=== PATIENT | male | born 1980 | race Caucasian/White ===

== ENCOUNTER 2017-01-11 14:30 | Emergency (ER) | payer OTHER ==
[2017-01-11 14:55] VITALS: TEMP 97.9; O2SAT 95
[2017-01-11] MEDS ORDERED: ASPIRIN 81 MG CHEWABLE TAB PO ONE (14:58)
--- NOTE | 2017-01-11 14:59 | CPEKG ---
Heart Rate: 75 RR Interval: 800 P-R Interval: 168 QRSD Interval: 92 QT Interval: 372 QTC Interval: 416 P [place]: 58 QRS [place]: 4 T Wave [place]: 38 EKG Severity - NORMAL ECG - EKG Impression: SINUS RHYTHM Electronically Signed By: Pk uRiz 12-Jan-2017 10:12:50
--- NOTE | 2017-01-11 15:49 | UCPHY ---
H & P Patient Type: New Chief Complaint Nursing Narrative: cp x 3 days or so . with sob. Time Seen by Provider: 01/11/17 15:47 HPI/ROS: CHIEF COMPLAINT: Left anterior lateral chest pain HISTORY OF PRESENT ILLNESS: Previously healthy 36-year-old male who has had no recent cough. Nonetheless he started developing pain to the lateral aspect of the anterior chest wall in the anterior axial line. He became concerned today when he has noted some shortness of breath while carrying the baby carrier. It was not straining in the is he was carrying on the right side. There is no associated diaphoresis. He had had no wheezing. No peripheral edema or calf pain. No prior history of DVT or PE. He cannot recall anything particular that he did strain on the left chest wall. Some 3 days ago he did go for a run which she felt well with normal stamina and did to some pushups, however, this activity was after the onset of discomfort. Discomfort is steady, worse with movement as well as twisting. It is not getting worse, only persistent and now with some shortness of breath without diaphoresis. It is mild in nature, achy sensation. Over the mid left chest at the anterior axillary line Cardiac risk factors: None DVT/PE risk factors: None Aortic dissection risk factors: None REVIEW OF SYSTEMS: Constitutional: No fever, no chills. Eyes: No discharge ENT: No sore throat. Cardiovascular: See above Respiratory: No cough, shortness of breath, or wheezing. Gastrointestinal: No nausea vomiting or diarrhea. No abdominal pain. Genitourinary: No hematuria or frequency. Musculoskeletal: No back pain. Skin: No rashes. Neurological: No headache. 10 point ROS otherwise negative Source: Patient Exam Limitations: No limitations - Personal History Current Tetanus Diphtheria and Acellular Pertussis (TDAP): Yes - Medical/Surgical History Hx Asthma: No Hx Chronic Respiratory Disease: No Hx Diabetes: No Hx Cardiac Disease: No Hx Renal Disease: No Hx Cirrhosis: No Hx Alcoholism: No Hx Splenectomy or Spleen Trauma: No Other PMH: Hernia inguinal bilaterally - Family History Significant Family History: No pertinent family hx - Social History Smoking Status: Never smoked Alcohol Use: None Drug Use: None - Physical Exam Exam: General Appearance: Alert, no distress. Afebrile. Normal phonation. No respiratory distress. Eyes: Pupils equal and round no pallor or injection. No icterus ENT, Mouth: Mucous membranes moist. Pharynx without erythema or exudate. TM Clear. Neck: No adenopathy. Supple. No JVD. Trachea in midline. Respiratory: There are no retractions, lungs are clear to auscultation. There is no rales or rubs heard over the spot in question in the anterior axillary line. The area itself is not tender to palpation directly however when he twists and bends and reaches in provocative manner as I had him do so in fact reproduce the pain. Cardiovascular: Regular rate and rhythm, without murmur. Abdomen: Soft and nontender, no masses, bowel sounds normal. Neurological: Ox3. No motor weakness. Sensation intact. Gait nl. Skin: Warm and dry, no rashes. Musculoskeletal: No joint swelling. Extremities: No edema. Homans sign negative. No cords. Psychiatric: Normal affect. Constitutional: Initial Vital Signs Temperature (C) 36.6 C 01/11/17 14:51 Heart Rate 90 01/11/17 14:51 Respiratory Rate 18 01/11/17 14:51 Blood Pressure 145/94 H 01/11/17 14:51 O2 Sat (%) 95 01/11/17 14:51 O2 Delivery Mode Room Air Allergies/Adverse Reactions: No Known Allergies Allergy (Unverified 01/11/17 14:55) Home Medications: Medication Instructions Recorded NK [No Known Home Meds] 01/11/17 Medical Decision Making - Diagnostics EKG Interpretation: EKG. Interpreted by me contemporaneously. Normal sinus rhythm. Rate of 75. Normal QTC of 4 1. No ischemic changes. Normal QRS. Normal QTC as well as ST T segments. Normal EKG. ED Course/Re-evaluation: His heart score is 0. He has reproducible chest pain in the site specifically with twisting and bending and reaching. Not direct touch. EKG is negative. Thereby no further testing is necessary. I would expect improvement over the course of the next 10 days to 2 weeks on ibuprofen and Tylenol therapy. Should his symptoms escalate, worsen, or additional findings or symptoms he should return. Differential Diagnosis: Differential diagnosis includes but is not limited to the following: ACS, myocardial infarction, pneumothorax, pleurisy, pulmonary embolus, aortic dissection, anxiety, muscle strain. - Data Points Medications Given: Discontinued Medications Aspirin (Aspirin) 324 mg PO EDNOW ONE Stop: 01/11/17 14:59 Last Admin: 01/11/17 15:02 Dose: 324 mg Departure - Departure Disposition: Home, Routine, Self-Care Clinical Impression: Musculoskeletal chest pain Condition: Good Instructions: Chest Pain (ED) Additional Instructions: Tylenol and Advil works well together the combination, 1300 Tylenol extended- release and 800 mg every 8 hours. See her family doctor in 1 weeks time if not completely resolved. You need to return if he develops fever or worsening shortness of breath. Referrals: Nadiya Ortiz MD [Primary Care Provider] - As per Instructions - PQRS PQRS Measurement: NA
[2017-01-11 17:06] VITALS: BP 137/80; PULSE 74; RESP 16
== END 2017-01-11 17:04 | disposition home or self-care (01) ==
LOC: CED 14:30
DX: R07.89 Other chest pain (principal); R06.02 Shortness of breath
CPT/HCPCS: 71020-PO; 93010-PO; 99205-PO; G0463-PO